=== PATIENT | female | born 2000 | race Caucasian/White ===

== ENCOUNTER 2022-01-28 14:33 | Outpatient (CLI) | payer BC, SELFPAY ==
[2022-01-28 23:39] LABS: Chlamydia DNA Amplified* NOT DETECTED (No Detected); GC DNA Amplified* NOT DETECTED (No Detected)
== END 2022-01-28 14:34 | disposition home or self-care (01) ==
LOC: LKVREF 14:33
PROVIDERS: PCP Family Medicine; Visit Provider Student in an Organized Health Care Education/Training Program
DX: N89.8 Other specified noninflammatory disorders of vagina (principal); R30.0 Dysuria; B37.3 Candidiasis of vulva and vagina
CPT/HCPCS: 87086; 87491; 87591